=== PATIENT | female | born 1955 | race Caucasian/White ===

== ENCOUNTER 2019-01-05 08:59 | Outpatient (CLI) | payer OTHER ==
[2019-01-05 09:56] LABS: ALT (SGPT) 46 U/L (8-55); AST (SGOT) 24 U/L (5-34); Albumin 4.2 g/dL (3.4-4.8); Alkaline Phosphatase 105 U/L (40-150); Anion Gap 14 mmol/L (10-20); BUN (Urea Nitrogen) 20 mg/dL (9.8-20.1); Bilirubin, Total 0.6 mg/dL (0.2-1.2); Calc. Creatinine Clearance 0 mL/min (70-130); Calcium 9.5 mg/dL (7.8-10.44); Carbon Dioxide 25 mmol/L (23-31); Cardiac Risk 5.6 (Less than 4.5); Chloride 100 mmol/L (98-107); Cholesterol 290 mg/dl (< 200 Desired); Estimated GFR-MDRD 73; Globulin 2.9 g/dL (2.4-3.5); Glucose 391 mg/dL (80-115); HDL Cholesterol 52 mg/dL (>60 Neg Risk); LDL Cholesterol, Calculated 193 mg/dL; Potassium 4.4 mmol/L (3.5-5.1); Protein, Total 7.1 g/dL (6.0-8.3); Sodium 135 mmol/L (136-145); Triglycerides 224 mg/dL (Less than 150)
[2019-01-05 10:18] LABS: #Eosinphils 0.1 thou/uL (0.0-0.7); #Monocytes 0.3 thou/uL (0.11-0.59); #Neutrophils 2.8 thou/uL (1.40-6.50); %Basophils 0.6 % (0.0-1.0); %Eosinophils 1.1 % (0.0-10.0); %Lymphocytes 38.6 % (21.0-51.0); %Monocytes 6.1 % (0.0-10.0); %Neutrophils 53.5 % (42.0-75.0); Mean Corpuscular HGB CONC 33.7 g/dL (32.0-36.0); Mean Corpuscular Volume 83.2 fL (78.0-98.0); Mean Platelet Volume 8.9 fL (7.4-10.4); Platelet Count 194 thou/uL (130-400); RBC Distribution Width 12.1 % (11.5-14.5); Red Blood Cell (RBC) Count 5.35 mill/uL (4.20-5.40); White Blood Cell (WBC) Count 5.2 thou/uL (4.8-10.8)
[2019-01-05 10:29] LABS: Thyroid Stimulating Hormone 1.4846 uIU/mL (0.35-4.94)
[2019-01-05 10:49] LABS: Bilirubin Negative (Negative); Blood, Urine Trace (Negative); Clarity Clear (Clear); Glucose, Urine (Dipstick) >=1000 mg/dL (Negative); Leukocyte Trace (Negative); Nitrite Negative (Negative); Protein, Urine (Dipstick) Negative (Neg-Trace); Specific Gravity, Urine 1.015 (1.005-1.030); Urobilinogen 0.2 mg/dL (0.2-1.0); pH, Urine 5.5 (5.0-9.0)
--- NOTE | 2019-01-05 11:00 | ULT ---
LEFT LOWER EXTREMITY VENOUS DUPLEX EXAM: History: Wound in left leg, redness and edema. Swelling of foot. FINDINGS: Real-time color doppler evaluation of the left lower extremity was performed from groin to calf. This includes evaluation of common femoral, superficial, and profunda femoral, saphenous, popliteal, and posterior tibial veins. This shows patent deep venous system with normal compressibility and augmenta tion. There is no evidence of DVT. IMPRESSION: No evidence of DVT of the left lower extremity. POS: [facility]
[2019-01-05 11:04] LABS: Hemoglobin A1c 12.9 % (4.0-6.0)
[2019-01-05 11:29] LABS: Vitamin D, 25 Hydroxy 16.8 ng/ml (> 30.0)
[2019-01-05 12:12] LABS: Bacteria/HPF 2+ HPF (None Seen)
== END 2019-01-05 09:00 | disposition home or self-care (01) ==
LOC: SCSULT 08:59
PROVIDERS: ATTEND Family Medicine
DX: Z00.00 Encounter for general adult medical examination without abnormal findings (principal); R60.0 Localized edema; R73.09 Other abnormal glucose; F34.1 Dysthymic disorder
CPT/HCPCS: 36415; 80053; 80061; 81001; 82306; 83036; 84443; 85025

== ENCOUNTER 2019-01-18 15:51 | Outpatient (CLI) | payer OTHER ==
--- NOTE | 2019-01-19 18:22 | MMO ---
Bilateral MAMMO Bilat Screen [facility]. CLINICAL HISTORY: Patient is 63 years old and is seen for screening. The patient has no family history of breast cancer. The patient has no personal history of cancer. VIEWS: The views performed were: bilateral craniocaudal with tomosynthesis and bilateral mediolateral oblique with tomosynthesis. MAMMOGRAM FINDINGS: There are scattered fibroglandular densities. There are benign appearing calcifications seen in both breasts. There are no suspicious masses, calcifications or areas of architectural distortion. IMPRESSION: CALCIFICATIONS IN BOTH BREASTS ARE BENIGN. A ROUTINE FOLLOW-UP MAMMOGRAM IN 1 YEAR IS RECOMMENDED. THE RESULTS OF THIS EXAM WERE SENT TO THE PATIENT. ACR BI-RADS Category 2 - Benign finding MAMMOGRAPHY NOTE: 1. A negative mammogram report should not delay a biopsy if a dominant of clinically suspicious mass is present. 2. Approximately 10% to 15% of breast cancers are not detected by mammography. 3. Adenosis and dense breasts may obscure an underlying neoplasm.
== END 2019-01-18 15:52 | disposition home or self-care (01) ==
LOC: BICMAMMO 15:51
PROVIDERS: ATTEND Family Medicine
DX: Z12.31 Encounter for screening mammogram for malignant neoplasm of breast (principal); R92.1 Mammographic calcification found on diagnostic imaging of breast
CPT/HCPCS: 77063; 77067

== ENCOUNTER 2019-02-06 09:39 | Outpatient (CLI) | payer OTHER ==
--- NOTE | 2019-02-06 11:19 | HP ---
HISTORY OF PRESENT ILLNESS: Ms. Jamia Michel is a very pleasant 63-year-old, who presents to the Wound Center for evaluation of an ulceration of the left anteromedial lower leg. The patient states that she was attacked by a rooster in October of 2018. She states that she developed an abscess of her left anteromedial lower leg in November of this year. She states that after she developed the abscess, she was seen in Urgent Care on three occasions. She states that at the first visit, the abscess was opened and subsequently the wound was cleaned at the time of her visit. She states that she was then seen by her primary care physician, Dr. Lynch, who cleaned the wound and began dressing changes of Silvadene. The patient states that she began utilizing gauze and Coban as secondary dressings after using Band-Aids in conjunction with Silvadene irritated her skin. The patient was referred to the Wound Center by Dr. Lynch on 01/11/2019. PAST MEDICAL HISTORY: 1. Hypertension. 2. Diabetes mellitus. PAST SURGICAL HISTORY: Hemorrhoid surgery approximately 10 years ago. MEDICATIONS: 1. Tylenol. 2. Metformin. 3. Gabapentin. 4. Lisinopril. 5. Atorvastatin. ALLERGIES: LATEX ADHESIVE. SOCIAL HISTORY: Social history is negative for tobacco or EtOH use. FAMILY HISTORY: Family history is significant for diabetes mellitus. The patient states that her mother was diagnosed with diabetes mellitus. She states that she has multiple relatives on the maternal side of her family, who were diagnosed with diabetes mellitus. Family history is negative for coronary artery disease. PHYSICAL EXAMINATION: VITAL SIGNS: Temperature 97.9, pulse 110, blood pressure 186/90. GENERAL: A 63-year-old female, sitting on table in examination room, in no acute distress. HEENT: Normocephalic and atraumatic. NECK: No nuchal rigidity. CHEST: Clear to auscultation. CV: Regular rate and rhythm. ABDOMEN: Soft. EXTREMITIES: An ulceration of the left anterior medial lower leg is present, which measures approximately 1.0 x 1.0 cm. Granulation tissue is present within the wound margins. Nonviable tissue present within the wound margins was debrided with an excisional full-thickness debridement. No purulent drainage is associated with the wound. No erythema of the skin surrounding the wound is appreciated. No maceration of the skin of the periwound is noted. A dorsalis pedis pulse is palpable on the left. Fejr-rz-jrfazlix edema of the left foot and lower leg is present on exam today. Numerous varicosities are present over the left foot and lower leg. NEUROLOGIC: Grossly nonfocal. ASSESSMENT AND PLAN: 1. Varicose veins with ulcer, Medihoney, 4x4s, Webril, and the 3M Coban 2 Layer Compression System will be applied to the ulceration today. No antibiotics will be prescribed today based upon the appearance of the wound. I will see Ms. Michel again in 1 week. The patient understands and is in agreement with the preceding treatment plan. She has been instructed to keep the wrap applied in clinic today, clean and dry until her followup visit in 1 week. 2. Hypertension. 3. Diabetes mellitus. Accu-Cheks will be obtained at the time of the patient's clinic visits. The patient has been told that for optimal wound healing, her blood glucoses should remain below 150. Job ID: [id number]
[2019-02-06] MEDS ORDERED: Lidocaine 2% 11 ML SYR ONE (18:00)
[2019-02-06] MEDS ORDERED: Sodium Chloride 0.9% 15 ML NEB ONE (18:00)
== END 2019-02-06 09:40 | disposition home or self-care (01) ==
LOC: WCC 09:39
PROVIDERS: ATTEND Family Medicine
DX: E11.622 Type 2 diabetes mellitus with other skin ulcer (principal); I86.8 Varicose veins of other specified sites; I10 Essential (primary) hypertension
CPT/HCPCS: A4218

== ENCOUNTER 2019-02-13 09:39 | Outpatient (CLI) | payer OTHER ==
--- NOTE | 2019-02-13 09:41 | PRG ---
DATE OF SERVICE: 02/13/2019 HISTORY OF PRESENT ILLNESS: Ms. Jamia Michel is a very pleasant 63-year-old, who presents to the Wound Center for evaluation of an ulceration of the left anteromedial lower leg. The patient stated that she was attacked by a rooster in October of 2018. She stated that she developed an abscess of her left anteromedial lower leg in November of this year. She stated that after she developed the abscess, she was seen in Urgent Care on three occasions. She stated that at the first visit, the abscess was opened and subsequently the wound was cleaned at the time of her visit. She stated that she was then seen by her primary care physician Dr. Lynch, who cleaned the wound and began dressing changes with Silvadene. The patient stated that she began using gauze and Coban as secondary dressings after using Band-Aids in conjunction with Silvadene irritated her skin. The patient was referred to the Wound Center by Dr. Lynch on 01/11/2019. After being seen in the Wound Center, Medihoney, 4x4s, Webril, and the 3M Coban 2 Layer Compression System were applied to the ulceration. PHYSICAL EXAMINATION: VITAL SIGNS: Temperature 97.8, pulse 97, respirations 17, blood pressure 162/75. Accu-Chek 321. EXTREMITIES: An ulceration of the left anteromedial lower leg is present, which measures approximately 1.4 x 0.8 cm. Granulation tissue is present within the wound margins. Necrotic and nonviable tissue present within the wound margins were debrided with an excisional full-thickness debridement with the use of a curette and scissors. No purulent drainage is associated with the wound. No erythema of the skin surrounding the wound is appreciated. No maceration of the skin of the periwound is noted. A dorsalis pedis pulse and a posterior tibial pulse are both palpable on the left. Erfm-sh-rpeqaith edema of the left foot and lower leg is present on exam today. Numerous varicosities are present over the left foot and lower leg. ASSESSMENT AND PLAN: 1. Varicose veins with ulcer. Medihoney, 4x4s, Webril, and the 3M Coban 2 Layer Compression System will be applied to the ulceration today. I will see Ms. Michel again in 1 week. 2. Hypertension. 3. Diabetes mellitus. The patient's Accu-Chek in clinic today is 321. The patient has been reminded that for optimal wound healing, her blood glucoses should remain below 150. Job ID: [id number]
[2019-02-13] MEDS ORDERED: Lidocaine 2% 11 ML SYR ONE (18:00)
[2019-02-13] MEDS ORDERED: Sodium Chloride 0.9% 15 ML NEB ONE (18:00)
== END 2019-02-13 09:40 | disposition home or self-care (01) ==
LOC: WCC 09:39
PROVIDERS: ATTEND Family Medicine
DX: I83.892 Varicose veins of left lower extremity with other complications (principal); E11.622 Type 2 diabetes mellitus with other skin ulcer; L97.929 Non-pressure chronic ulcer of unspecified part of left lower leg with unspecified severity; I10 Essential (primary) hypertension
CPT/HCPCS: 11042; 36416; A4218

== ENCOUNTER 2019-02-20 09:28 | Outpatient (CLI) | payer OTHER ==
--- NOTE | 2019-02-20 10:35 | PRG ---
DATE OF SERVICE: 02/20/2019 HISTORY: Ms. Jamia Michel is a very pleasant 63-year-old, who presents to the wound center for evaluation of an ulceration of the left anteromedial lower leg. The patient previously stated that she was attacked by a rooster in October of 2018. She stated that she developed an abscess of her left anteromedial lower leg in November of this year. She stated that after she developed the abscess she was seen in urgent care on 3 occasions. She stated that at the first visit the abscess was opened and subsequently the wound was cleaned at the time of her visit. She stated that she was then seen by her primary care physician, Dr. Lynch, who cleaned the wound and begin dressing changes with Silvadene. The patient stated that she began using gauze and Coban as secondary dressings after using Band-Aids in conjunction with Silvadene irritated her skin. The patient was referred to the wound center by Dr. Lynch on 01/11/2019. After being seen in the wound center, Medihoney, 4x4s, Webril, and the 3M Coban 2 Layer Compression System were applied to the ulceration. The patient was unable to tolerate the 3M Coban 2 Layer Compression System for the entire interval of time since her last visit. PHYSICAL EXAMINATION: VITAL SIGNS: Temperature 97.5, pulse 103, blood pressure 133/81. Accu-Chek 226. EXTREMITIES: An ulceration of the left anteromedial lower leg is present, which measures approximately 1.4 x 1.0 cm. Granulation tissue is present within the wound margins. Necrotic and nonviable tissue present within the wound margins was debrided with an excisional full-thickness debridement with the use of a curette. No purulent drainage is associated with the wound. No erythema of the skin surrounding the wound is present. No maceration of the skin of the periwound is noted. No significant edema of the left foot or lower leg is present on exam today. Numerous varicosities are present over the left foot and lower leg. The borders of the ulceration are irregular. ASSESSMENT AND PLAN: 1. Varicose veins with ulcer. Medihoney, gauze, and Coban will be applied to the ulceration today followed by the patient's compression garment. The patient is to perform the preceding dressing changes on a daily basis after cleansing and irrigation. I will see Ms. Michel again in 2 weeks. 2. Hypertension. 3. Diabetes mellitus. The patient's Accu-Chek in clinic today is 226. The patient has been reminded that for optimal wound healing her blood glucoses should remain below 150. Job ID: [id number]
[2019-02-20] MEDS ORDERED: Lidocaine 2% 11 ML SYR ONE (21:35)
[2019-02-20] MEDS ORDERED: Sodium Chloride 0.9% 15 ML NEB ONE (21:35)
== END 2019-02-20 09:29 | disposition home or self-care (01) ==
LOC: WCC 09:28
PROVIDERS: ATTEND Family Medicine
DX: I83.028 Varicose veins of left lower extremity with ulcer other part of lower leg (principal); E11.622 Type 2 diabetes mellitus with other skin ulcer; L97.929 Non-pressure chronic ulcer of unspecified part of left lower leg with unspecified severity; I10 Essential (primary) hypertension
CPT/HCPCS: A4218

== ENCOUNTER 2019-03-06 14:48 | Outpatient (CLI) | payer OTHER ==
--- NOTE | 2019-03-06 10:28 | PRG ---
DATE OF SERVICE: 03/06/2019 HISTORY: Ms. Jamia Michel is a very pleasant 63-year-old, who presents to the wound center for evaluation of an ulceration of the left anteromedial lower leg. The patient previously stated that she was attacked by a rooster in 10/2018. She stated that she developed an abscess of her left anteromedial lower leg in November of this year. She stated that after she developed that abscess, she was seen in urgent care on 3 occasions. She stated that at the first visit the abscess was opened, and subsequently, the wound was cleaned at the time of her visit. She stated that she was then seen by her primary care physician, Dr. Lynch, who cleaned the wound and begin dressing changes with Silvadene. The patient stated that she began using gauze and Coban as secondary dressings after using Band-Aids in conjunction with Silvadene irritated her skin. The patient was referred to the wound center by Dr. Lynch on 01/11/2019. After being seen in the wound center, Medihoney, 4x4s, Webril, and the 3M Coban 2-Layer Compression System were applied to the ulceration. The patient was unable to tolerate application of the 3M Coban 2-Layer Compression System. PHYSICAL EXAMINATION: VITAL SIGNS: Temperature 98.4, pulse 95, respirations 18, and blood pressure 145/79. Accu-Chek 166. EXTREMITIES: An ulceration of the left anteromedial lower leg is present, which measures approximately 1.1 x 0.9 cm. Granulation tissue is present within the wound margins. No purulent drainage is associated with the wound. No erythema of the skin surrounding the wound is present. No maceration of the skin of the periwound is noted. No significant edema of the left foot or lower leg is present on exam today. Numerous varicosities are present over the left foot and lower leg. The borders of the ulceration are irregular. ASSESSMENT AND PLAN: 1. Varicose veins with ulcer. Medihoney, gauze, and Coban will be applied to the ulceration today followed by the patient's compression garment. The patient is to continue the preceding dressing changes on a daily basis after cleansing and irrigation. The wound is healing without complications or any signs of infection, and Ms. Michel will be discharged from clinic today with followup on a p.r.n. basis. 2. Hypertension. 3. Diabetes mellitus. The patient's Accu-Chek in clinic today is 166. The patient has been reminded that for optimal wound healing her blood glucoses should remain below 150. Job ID: [id number]
[2019-03-06] MEDS ORDERED: Sodium Chloride 0.9% 15 ML NEB ONE (19:10)
== END 2019-03-06 14:49 | disposition home or self-care (01) ==
LOC: WCC 14:48
PROVIDERS: ATTEND Family Medicine
DX: I83.028 Varicose veins of left lower extremity with ulcer other part of lower leg (principal); E11.622 Type 2 diabetes mellitus with other skin ulcer; L97.921 Non-pressure chronic ulcer of unspecified part of left lower leg limited to breakdown of skin; I10 Essential (primary) hypertension
CPT/HCPCS: 97602; A4218

== ENCOUNTER 2019-03-20 15:33 | Outpatient (CLI) | payer OTHER ==
--- NOTE | 2019-03-20 12:34 | PRG ---
DATE OF SERVICE: 03/20/2019 PRIMARY CARE PHYSICIAN: José Lynch MD HISTORY: Ms. Jamia Michel is a very pleasant 63-year-old, who presents to the wound center for evaluation of an ulceration of the left anteromedial lower leg. Previously, the patient stated that she was attacked by a rooster in October of 2018. She stated that she developed an abscess of her left anteromedial lower leg in November of this year. She stated that after she developed the abscess, she was seen in urgent care on three occasions. She stated that at the first visit, the abscess was opened and subsequently the wound was cleaned at the time of her visit. She stated that she was then seen by her primary care physician Dr. Lynch, who cleaned the wound and began dressing changes with Silvadene. The patient stated that she began using gauze and Coban as secondary dressings after using Band-Aids in conjunction with Silvadene irritated her skin. The patient was referred to the wound center by Dr. Lynch on 01/11/2019. After being seen in the wound center, Medihoney, 4x4s, Webril, and the 3M Coban 2 Layer Compression System were applied to the ulceration. The patient was unable to tolerate the application of the 3M Coban 2 Layer Compression System. PHYSICAL EXAMINATION: VITAL SIGNS: Temperature 97.8, pulse 89, respirations 18, and blood pressure 146/75. Accu-Chek 256. EXTREMITIES: An ulceration of the left anteromedial lower leg is present, which measures approximately 0.5 x 0.5 cm. The dimensions of the wound at the time of the patient's last visit were approximately 1.1 x 0.9 cm. Granulation tissue is present within the wound margins. No purulent drainage is associated with the wound. No erythema of the skin surrounding the wound is present. No maceration of the skin of the periwound is noted. A dorsalis pedis pulse is easily palpable on the left. No significant edema of the left foot or lower leg is present on exam today. Numerous varicosities are present over the left foot and lower leg. The borders of the ulceration are regular. ASSESSMENT AND PLAN: 1. Varicose veins with ulcer, dressing changes of Xeroform gauze, 4x4s, and Coban will be initiated today. These dressing changes are to be performed on a daily basis after cleansing and irrigation. The patient is to perform the preceding dressing changes in conjunction with the use of her compression garments. The patient understands and is in agreement with the preceding treatment plan. The patient states she will contact the clinic in order to schedule her next followup appointment. 2. Hypertension. 3. Diabetes mellitus. The patient's Accu-Chek in clinic today is 256. The patient has been reminded that for optimal wound healing her blood glucoses should remain below 150. Job ID: [id number]
[2019-03-20] MEDS ORDERED: Sodium Chloride 0.9% 15 ML NEB ONE (18:00)
== END 2019-03-20 15:34 | disposition home or self-care (01) ==
LOC: WCC 15:33
PROVIDERS: ATTEND Family Medicine
DX: I83.028 Varicose veins of left lower extremity with ulcer other part of lower leg (principal); L97.929 Non-pressure chronic ulcer of unspecified part of left lower leg with unspecified severity; I10 Essential (primary) hypertension; E11.622 Type 2 diabetes mellitus with other skin ulcer
CPT/HCPCS: A4218

== ENCOUNTER 2019-04-04 09:39 | Emergency (ER) | payer OTHER ==
[2019-04-04 10:06] LABS: #Eosinphils 0.1 thou/uL (0.0-0.7); #Lymphocytes 2.4 thou/uL (1.20-3.40); #Monocytes 0.5 thou/uL (0.11-0.59); #Neutrophils 3.7 thou/uL (1.40-6.50); %Basophils 0.5 % (0.0-1.0); %Lymphocytes 36.1 % (21.0-51.0); %Monocytes 7.4 % (0.0-10.0); %Neutrophils 55.1 % (42.0-75.0); Hemoglobin 13.3 g/dL (12.0-16.0); Mean Corpuscular HGB CONC 33.9 g/dL (32.0-36.0); Mean Corpuscular Volume 85.5 fL (78.0-98.0); Mean Platelet Volume 7.8 fL (7.4-10.4); Platelet Count 230 thou/uL (130-400); RBC Distribution Width 12.2 % (11.5-14.5); Red Blood Cell (RBC) Count 4.58 mill/uL (4.20-5.40); White Blood Cell (WBC) Count 6.6 thou/uL (4.8-10.8)
[2019-04-04 10:21] LABS: ALT (SGPT) 16 U/L (8-55); AST (SGOT) 9 U/L (5-34); Albumin 4.2 g/dL (3.4-4.8); Alkaline Phosphatase 65 U/L (40-150); Anion Gap 16 mmol/L (10-20); BUN (Urea Nitrogen) 18 mg/dL (9.8-20.1); Bilirubin, Total 0.6 mg/dL (0.2-1.2); CK (CPK) 30 U/L (29-168); Calc. Creatinine Clearance 0 mL/min (70-130); Calcium 9.6 mg/dL (7.8-10.44); Carbon Dioxide 24 mmol/L (23-31); Chloride 98 mmol/L (98-107); Estimated GFR-MDRD 74; Globulin 2.5 g/dL (2.4-3.5); Glucose 282 mg/dL (80-115); Potassium 3.7 mmol/L (3.5-5.1); Protein, Total 6.7 g/dL (6.0-8.3); Sodium 134 mmol/L (136-145)
--- NOTE | 2019-04-04 10:28 | RAD ---
XR Chest 1 View Portable HISTORY: Tachycardia and abnormal EKG COMPARISON: None FINDINGS: The heart size is normal. The lungs are well expanded without focal areas of consolidation, pneumothorax or pleural effusions. IMPRESSION: No radiographic evidence of acute cardiopulmonary process.
== END 2019-04-04 11:15 | disposition home or self-care (01) ==
LOC: SCSER 09:39
DX: R00.0 Tachycardia, unspecified (principal)
CPT/HCPCS: 36415; 71045; 80053; 82550; 84484; 85025; 85379; 93005; 96360